=== PATIENT | female | born 1975 | race Caucasian/White ===

== ENCOUNTER 2025-02-26 13:35 | Emergency (ER) | payer OTHER, SELFPAY ==
[2025-02-26 13:43] VITALS: BP 117/79
--- NOTE | 2025-02-26 14:45 | ED.GENMED ---
History of Present Illness
General
Chief Complaint: Urinary Symptoms
Time Seen by Provider: 02/26/25 13:59
History of Present Illness
History of Present Illness:
49-year-old female without significant past medical history presenting for right flank pain. Patient reports that about 5 days ago she started to have some discomfort to her right flank with some urinary frequency. She went to see her doctor 2
days ago, suspected to have a UTI and was started on Bactrim. She has had 3 doses of the Bactrim, however symptoms feel worse. Denies dysuria. Pain is primarily in the right flank with radiation to the abdomen. Denies nausea or vomiting. Does
report low-grade fever last evening. Denies history of kidney stones. Denies injury or trauma. She has been taking ibuprofen for pain. Denies additional acute medical complaints
Phy Exam
Physical Exam
Physical Exam:
General: Well-appearing, no clinical signs of dehydration, nontoxic and in no acute distress
HEENT: protecting airway
Neck: appears supple
CV: Normal heart rate, regular rhythm
Resp: No accessory muscle use, no increased work of breathing, lungs clear to auscultation bilaterally
Abd: Soft and non-distended, no tenderness to palpatio. Mild right CVA tenderness
Extremities: No deformities, no swelling
Neuro: alert, no focal neurologic deficit
: deferred
Rectal: deferred
Psych: Normal affect
Skin: Intact
Course
Orders/Labs/Results
Orders:
Orders
02/26/25 14:41
Ketorolac [Toradol] 15 mg IV NOW STA
02/26/25 14:42
Test Result ONCE
02/26/25 14:43
CT Abd/pel Without Iv Or Oral Urgent
Comment:
Reason For Exam: right flank pain
02/26/25 14:55
Complete Blood Count/With Diff Urgent
Comprehensive Metabolic Panel Urgent
HCG, Urine Qualitative Screen Urgent
Date Specimen was Collected: 02/26/25
Time Specimen was Collected: 14:52
Urinalysis Reflex To Culture Urgent
Date Specimen was Collected: 02/26/25
Time Specimen was Collected: 14:52
Urine Microscopic Reflex Cult Urgent
Urine Culture Urgent
AISHWARYA Source: U
Specimen Description:
Date Specimen was Collected: 02/26/25
Time Specimen was Collected: 14:52
02/26/25 15:32
0.9% Sodium Chloride 1000 ml [Nss] 1,000 ml IV BOLUS
Abnormal Lab Results
02/26/25
14:55
WBC 15.6 H 10^3/uL
(4.8-10.8)
RBC 4.10 L 10^6/uL
(4.20-5.40)
Abs Immat Gran (auto) 0.1 H 10^3/uL
(0-0.05)
Absolute Neuts (auto) 12.7 H 10^3/uL
(1.4-6.5)
Absolute Monos (auto) 1.5 H 10^3/uL
(0.1-0.6)
Neutrophils % 81.6 H %
(42.2-75.2)
Lymphocytes % 7.7 L %
(20.5-51.1)
Glucose 102 H mg/dl
(70-99)
Ur Occult Blood Reflex 1+ A
(Negative)
Leukocyte Esterase Rfl 1+ A
(Negative)
Urine RBC 3-6 A /HPF
(0-2)
Urine WBC (Reflex) 16-20 A /HPF
(0-5)
Urine Bacteria (Reflex) Few A
(Negative)
Urine Albumin (Reflex) 2+ A
(Neg - Trace)
02/26/25 14:55
02/26/25 14:55
Vital Signs
Initial and Last Documented VS:
Initial Vital Signs
Temp Pulse Resp BP Pulse Ox
97.8 F 95 16 117/79 99
02/26/25 13:43 02/26/25 13:43 02/26/25 13:43 02/26/25 13:43 02/26/25 13:43
Last Documented Vital Signs
Temp Pulse Resp BP Pulse Ox
97.8 F 95 16 117/79 99
02/26/25 13:43 02/26/25 13:43 02/26/25 13:43 02/26/25 13:43 02/26/25 14:48
MDM/Problems Addressed
MDM/Problems Addressed:
49-year-old female presenting for right sided flank pain and urinary symptoms. Vitals are normal.
On exam patient resting comfortably, no acute distress. No significant tenderness to abdomen with mild tenderness to the right CVA. Suspected cystitis versus ascending urinary tract infection versus pyelonephritis versus nephrolithiasis.
Currently afebrile and nontoxic. Will obtain laboratory analysis, urinalysis, CT without contrast. Toradol administered for pain.
17:10 -patient CT without acute abnormality. Urine does show some evidence of infection with leukocytes and WBCs. Also mild leukocytosis. Consistent with urinary tract infection and possible developing pyelo. However patient remains
hemodynamically stable and nontoxic. Feel stable for discharge with outpatient management. Will change patient's antibiotic given persistence of symptoms. Will start patient on cephalexin. Return precautions discussed and patient verbalized
understanding
*Pulse Oximetry
SaO2: 99
Oxygen Mode of Delivery: Room air
Patient hypoxic: no
*Critical Care Note
Total Time (30-74mins, 75-104mins- exclusive of procedures): Not Applicable
ED Attending Note
-
Portions of this chart may have been created with voice recognition software.� Occasional wrong word or��sound alike� substitutions may have occurred due to the inherent limitations of voice recognition software.
Discharge Plan
Departure
Referrals:
Hardik Greenberg DO [Family Provider, [facility]]
Interventions
Interventions:
ED-Female Genitourinary Assessment Last Done: 02/26/25 15:11
ED-Musculoskeletal Assessment Last Done: 02/26/25 15:11
Discharge Date and Time
Print Language: CITIZ[place]
[2025-02-26] MEDS: TORADOL 15 MG IV (15:03)
[2025-02-26 15:04] VITALS: BMI 29.4
[2025-02-26 15:06] LABS: Hematocrit 37.0 % (37.0-47.0); Hemoglobin 12.5 g/dL (12.0-16.0); Mean Corp Hgb Conc. 33.8 g/dL (33.0-37.0); Mean Corpuscular Volume 90.2 fL (81.0-99.0); Nucleated Red Blood Cells % 0 %; Platelet Count 398 10^3/uL (130-400); Red Cell Dist. Width 13.8 % (11.5-14.5)
[2025-02-26 15:07] LABS: Urine Character Slightly Cloudy (Clear)
[2025-02-26 15:14] LABS: Urine White Cell 16-20 /HPF (0-5)
[2025-02-26 15:19] LABS: HCG, Urine Qualitative Screen Negative
[2025-02-26 15:22] LABS: ALT (SGPT) 15 U/L (0-35); AST (SGOT) 24 U/L (14-36); Albumin 3.9 g/dl (3.5-5.0); Alkaline Phosphatase 57 U/L (38-126); Blood Urea Nitrogen 12 mg/dl (7-17); Calcium 9.1 mg/dl (8.4-10.2); Carbon Dioxide 26 mmol/L (22-30); Chloride 106 mmol/L (98-107); Estimated Creatinine Clearance 86 ml/min; Glucose 102 mg/dl (70-99); Potassium 4.4 mmol/L (3.5-5.1); Sodium 136 mmol/L (135-145); Total Protein 6.7 g/dl (6.3-8.2); eGFR > 60.00
[2025-02-26] MEDS: NSS 1000 IV (16:33)
[2025-02-26] MEDS: KEFLEX 500 MG PO (17:12)
[2025-02-26] MEDS: TYLENOL 1000 MG PO (17:18)
[2025-02-26 17:55] VITALS: BP 120/76
== END 2025-02-26 17:57 | disposition home or self-care (01) ==
LOC: EMR 13:35
PROVIDERS: EMERGENCY PHYSICIAN Student in an Organized Health Care Education/Training Program; FAMILY PHYSICIAN Family Medicine
DX: N39.0 Urinary tract infection, site not specified (principal)
CPT/HCPCS: 99284; 96374; 96361; 74176; 80053; 81003; 81015; 81025; 85025; 87086